=== PATIENT | female | born 1935 | race Caucasian/White ===

== ENCOUNTER 2017-03-23 12:58 | Outpatient (CLI) | payer MEDICARE, BC ==
[~2017-03-23] VITALS: Ht 162.6 cm; Wt 72.0 kg
[~2017-03-23 12:58] MED LIST: FE-TABS325 MG PO; FOLIC ACID 40400 MCG PO; IRON325 M1 PO; NO HOME MEDICATIONS; VITAMIN C PO; VITAMIN C500 MG PO; VITAMIN D1000 IU PO
[2017-03-23 14:20] VITALS: BP 139/55; PULSE 67; TEMP 97
[2017-03-23] MEDS ORDERED: TIROSINT125 MC1 PO (14:38)
[2017-03-23] MEDS ORDERED: PROTONIX 40MG T40 MG PO (14:39)
[2017-03-23] MEDS ORDERED: ASPIRIN E.C. 8181 MG PO (14:48)
[2017-03-23] MEDS ORDERED: PRINZIDE 25 MG-1 TAB PO (14:49)
[2017-03-23] MEDS ORDERED: NORVASC 5MG5 MG/TAB PO (14:49)
[2017-03-23] MEDS ORDERED: ZOVIRAX400 MG PO (14:50)
[2017-03-23] MEDS ORDERED: LEXAPRO 10MG10 MG PO (14:50)
[2017-03-23] MEDS ORDERED: STOOL SOFTENER100 M2 PO (14:51)
[2017-03-23] MEDS ORDERED: FENTANYL 25 MCG TD (14:51)
[2017-03-23] MEDS ORDERED: OMEGA-3 1000 MG1 CAP PO (14:52)
[2017-03-23] MEDS ORDERED: CENTRUM SILVER1 TAB (14:52)
[2017-03-23] MEDS ORDERED: ZOFRAN 4MG T4 MG/TAB PO (15:15)
[2017-03-23] MEDS ORDERED: AMBIEN 10MG10 MG PO (15:15)
[2017-03-23] MEDS ORDERED: LIORESAL 1010 MG/TAB PO (15:16)
[2017-03-23] MEDS ORDERED: NORCO 325 MG-7.1 TAB PO (15:16)
== END 2017-04-27 09:14 | disposition home or self-care (01) ==
LOC: EUO 12:58
DX: E86.0 Dehydration (principal); C90.00 Multiple myeloma not having achieved remission
CPT/HCPCS: J1644; J7030

== ENCOUNTER 2017-04-13 11:15 | Outpatient (RCR) | payer MEDICARE, BC ==
[2017-03-31 08:32] VITALS: BP 145/53; PULSE 71; TEMP 97.2
[~2017-04-13] VITALS: Ht 162.6 cm; Wt 72.7 kg
[~2017-04-13 11:15] MED LIST changes: +AMBIEN 10MG10 MG PO; +ASPIRIN E.C. 8181 MG PO; +CENTRUM SILVER1 TAB; +FENTANYL 25 MCG TD; +LEXAPRO 10MG10 MG PO; +LIORESAL 1010 MG/TAB PO; +NORCO 325 MG-7.1 TAB PO; +NORVASC 5MG5 MG/TAB PO; +OMEGA-3 1000 MG1 CAP PO; +PRINZIDE 25 MG-1 TAB PO; +PROTONIX 40MG T40 MG PO; +STOOL SOFTENER100 M2 PO; +TIROSINT125 MC1 PO; +ZOFRAN 4MG T4 MG/TAB PO; +ZOVIRAX400 MG PO
[2017-04-13 11:24] VITALS: BP 134/49; PULSE 57; TEMP 97.4
== END 2017-06-29 ==
LOC: EUO
DX: E86.0 Dehydration (principal); C90.00 Multiple myeloma not having achieved remission
CPT/HCPCS: J1644; J7030